=== PATIENT | female | born 1980 | race Caucasian/White ===

== ENCOUNTER 2017-10-29 15:04 | Inpatient (IN) ==
[2017-10-29] MEDS ORDERED: DINOPROSTONE VAG GEL 10 MG SYRINGE VAG ONE ×2 (15:17→15:30)
[2017-10-29] MEDS ORDERED: ONDANSETRON 4 MG/2 ML VIAL IV PRN (15:40)
[2017-10-29] MEDS ORDERED: MEPERIDINE 50 MG/1 ML VIAL IV PRN (15:40)
[2017-10-29] MEDS ORDERED: BUTORPHANOL 2 MG/ML VIAL IV PRN (15:40)
[2017-10-29] MEDS ORDERED: LACTATED RINGERS 1,000 ML IV SCH (16:00)
[2017-10-29 16:04] LABS: Basophils # 0.1 10*3/uL (0.0-0.2); Basophils % 0.3 % (0.0-0.8); Eosinophils # 0.2 10*3/uL (0.0-0.87); Hemoglobin 12.7 GM/DL (12.0-16.0); Immature Granulocytes % 0.8 %; Immature Granulocytes Absolute 0.12 #; Lymphocytes # 3.1 10*3/uL (1.4-4.0); Lymphocytes % 19.9 % (21.3-54.2); Mean Corpuscular HGB Conc 34.3 GM/DL (32-36); Mean Corpuscular Hemoglobin 34 PG (27-34); Mean Corpuscular Volume 99.2 FL (87-102); Mean Platelet Volume 12.3 FL (9.6-12.0); Monocytes # 0.9 10*3/uL (0.11-0.8); Monocytes % 5.6 % (1.7-12.7); Neutrophils # 11.2 10*3/uL (1.4-7.4); Neutrophils % 72.4 % (38.7-73.9); Platelet Count 220 T/CUMM (130-400); Red Blood Count 3.73 MC/CUMM (3.8-5.5); Red Cell Distribution Width 14.1 % (9.3-17.3); White Blood Count 15.5 T/CUMM (4-12)
[2017-10-29] MEDS ORDERED: NALOXONE 0.4 MG/ML VIAL IV PRN (19:34)
[2017-10-29] MEDS ORDERED: ePHEDrine 50 MG/ML AMP IV PRN (19:34)
[2017-10-29] MEDS ORDERED: diphenhydrAMINE 50 MG/1 ML VIAL IV PRN (19:34)
[2017-10-29] MEDS ORDERED: ONDANSETRON 4 MG/2 ML VIAL IV ONE (19:34)
[2017-10-29] MEDS ORDERED: FAMOTIDINE 20 MG/2 ML VIAL IV ONE (19:35)
[2017-10-29] MEDS ORDERED: CITRIC ACID/SODIUM CITRATE 30 ML UDCUP PO ONE (19:35)
[2017-10-29] MEDS ORDERED: fentaNYL 2 MCG/ROPIV 0.2% EPID 100 ML EPIDURAL SCH (20:00)
[2017-10-29] MEDS: LACTATED RINGERS 1,000 ML IV SCH ×2 (20:03→23:57)
[2017-10-30] MEDS: OXYTOCIN/LR 20 UNIT/1,000 ML BAG IV SCH ×2 (01:57→19:41)
[2017-10-30] MEDS: LACTATED RINGERS 1,000 ML IV SCH (08:36)
[2017-10-30 09:34] LABS: Apearance,Urine Slightly Hazy (Clear); Bilirubin,Urine Negative (Negative); Blood, Urine Small mg/dL (Negative); Glucose,Urine (UA) Negative (Negative); Ketones,Urine Negative (Negative); Mucus,Urine Many /LPF (Occasional); Nitrite,Urine Negative (Negative); Protein,Urine 30 MG/DL; RBC,Urine 25 /HPF (0-4); Squamous Epithelial Cell,Urine Occasional /HPF (0-10); Urine Color Yellow (Yellow); Urine Specific Gravity 1.021 (1.001-1.035); Urine Urobilinogen < 2.0 EU/DL (0.2-1.0); WBC,Urine 56 /HPF (0-6)
[2017-10-30] MEDS ORDERED: fentaNYL 100 MCG/2 ML VIAL ONE (17:24)
[2017-10-30] MEDS ORDERED: LIDOCAINE MPF 2% /EPI 20 ML VIAL ONE (18:02)
[2017-10-30 21:48] LABS: Cord Arterial Blood HCO3 16.8 MMOL/L
[2017-10-30 21:51] LABS: Cord Venous Blood HCO3 18.9 MMOL/L; Cord Venous Blood PCO2 43.4 MMHG; Cord Venous Blood PO2 24.2
[2017-10-30] MEDS ORDERED: HYDROCORTISONE 2.5% RECTAL CREAM 30 GM TUBE TOP PRN (21:58)
[2017-10-30] MEDS ORDERED: BISACODYL 10 MG SUPP RECTAL PRN (21:58)
[2017-10-30] MEDS ORDERED: WITCH HAZEL PADS 100/JAR TOP PRN (21:58)
[2017-10-30] MEDS ORDERED: MEASLES/MUMPS/RUBELLA VACCINE 0.5 ML VIAL SUBCUT ONE (21:58)
[2017-10-30] MEDS ORDERED: LANOLIN 50% CREAM 0.3 OZ TUBE TOP PRN (21:58)
[2017-10-30] MEDS ORDERED: oxyCODONE/ACETAMINOPHEN 5-325 MG TABLET PO PRN (21:58)
[2017-10-30] MEDS ORDERED: ONDANSETRON 4 MG/2 ML VIAL IV PRN (21:58)
[2017-10-30] MEDS ORDERED: ACETAMINOPHEN 325 MG TABLET PO PRN (21:58)
[2017-10-30] MEDS ORDERED: RHO(D) IMMUNE GLOBULIN 300 MCG SYRINGE IM ONE (21:58)
[2017-10-30] MEDS ORDERED: DIPH/TET/ACEL PERT BOOSTER VACCINE 0.5 ML VIAL IM ONE (21:58)
[2017-10-30] MEDS ORDERED: OXYTOCIN/LR 20 UNIT/1,000 ML BAG IV ONE (21:58)
[2017-10-30] MEDS ORDERED: BENZOCAINE 20%/MENTHOL 0.5% SPRAY 56 GM CAN TOP PRN (21:58)
[2017-10-31] MEDS: oxyCODONE/ACETAMINOPHEN 5-325 MG TABLET PO PRN ×4 (00:36→19:57)
[2017-10-31 03:56] LABS: Basophils % 0.2 % (0.0-0.8); Eosinophils % 0.1 % (0.00-10.9); Hematocrit 30.3 VOL% (35.7-47.0); Hemoglobin 10.3 GM/DL (12.0-16.0); Immature Granulocytes % 0.7 %; Immature Granulocytes Absolute 0.17 #; Lymphocytes # 1.7 10*3/uL (1.4-4.0); Mean Corpuscular Hemoglobin 34 PG (27-34); Mean Corpuscular Volume 99.3 FL (87-102); Mean Platelet Volume 12.5 FL (9.6-12.0); Monocytes % 4.3 % (1.7-12.7); Neutrophils # 21.1 10*3/uL (1.4-7.4); Neutrophils % 87.7 % (38.7-73.9); Platelet Count 170 T/CUMM (130-400); Red Blood Count 3.05 MC/CUMM (3.8-5.5); Red Cell Distribution Width 13.9 % (9.3-17.3)
[2017-10-31 05:01] LABS: Band Neutrophils 2 % (0-10); Lymphocytes 12 % (20-55); Segmented Neutrophils 82 % (50-85); Total Cells Counted 100
[2017-10-31 05:02] LABS: Anisocytosis 1+; Platelet Estimate Adequate
[2017-10-31] MEDS: IBUPROFEN 800 MG TABLET PO PRN ×3 (07:03→19:57)
[2017-10-31] MEDS: DOCUSATE SODIUM 100 MG CAPSULE PO SCH ×2 (08:51→19:58)
[2017-10-31] MEDS ORDERED: MAGNESIUM HYDROXIDE SUSP 30 ML UDCUP PO PRN (21:18)
[2017-11-01] MEDS: DOCUSATE SODIUM 100 MG CAPSULE PO SCH (01:42)
[2017-11-01 07:25] VITALS: BP 94/64
[2017-11-01] MEDS: oxyCODONE/ACETAMINOPHEN 5-325 MG TABLET PO PRN (08:08)
[2017-11-01] MEDS: IBUPROFEN 800 MG TABLET PO PRN (08:08)
== END 2017-11-01 11:25 | disposition home or self-care (01) | DRG 560 ==
LOC: N.LD 15:04 → N.OB 10-31 00:14
PROVIDERS: ADMIT Obstetrics & Gynecology; ATTEND Obstetrics & Gynecology